=== PATIENT | female | born 1955 | race Caucasian/White ===

== ENCOUNTER 2025-01-01 12:43 | Emergency (ER) | payer MEDICARE, SELFPAY ==
[2025-01-01 12:57] VITALS: BP 120/58; PULSE 80; RESP 17; TEMP 36.5; O2SAT 98; BMI 28.5
--- NOTE | 2025-01-01 13:02 | DI.RAD.S_ITS ---
PROCEDURE: XR HIP W PEL IF DONE LT 2V INDICATIONS: Fall, left leg pain TECHNIQUE: 2 views of the hip were acquired. COMPARISON: None. FINDINGS: Bones: No fractures or dislocations. No suspicious bony lesions. The visualized pelvic ring appears intact. Soft tissues: No suspicious soft tissue calcifications or masses. IMPRESSION: No acute bony abnormality. Approved by: Benny Sanchez M.D. on 01/01/2025 at 12:56
--- NOTE | 2025-01-01 13:02 | DI.RAD.S_ITS ---
PROCEDURE: XR ANKLE LT MIN 3V INDICATIONS: Fall, left leg pain TECHNIQUE: 3 views of the ankle were acquired. COMPARISON: [facility], CR, XR TIBIA FIBULA LT 2V, 01/01/2025, 13:09. FINDINGS: Bones: Subtle lucency through the distal fibular metaphysis is noted. No ankle mortise disruption. Normal bone mineralization. Soft tissues: No tibiotalar joint effusion. Achilles tendon appears normal. IMPRESSION: Probable distal fibular nondisplaced fracture. Ankle mortise is maintained Approved by: Benny Sanchez M.D. on 01/01/2025 at 13:00
--- NOTE | 2025-01-01 13:03 | DI.RAD.S_ITS ---
PROCEDURE: XR TIBIA FIBULA LT 2V INDICATIONS: Fall, left leg pain TECHNIQUE: 2 views of the tibia and fibula were acquired. COMPARISON: None. FINDINGS: Bones: Subtle distal fibular nondisplaced fracture with associated soft tissue swelling Soft tissues: No suspicious soft tissue calcifications or masses. IMPRESSION: Subtle distal fibular nondisplaced Approved by: Benny Sanchez M.D. on 01/01/2025 at 13:02
--- NOTE | 2025-01-01 16:55 | ED_ITS ---
HPI - Fall General Chief Complaint: Fall Stated Complaint: Fell down stairs and injured LT ankle Time Seen by Provider: 01/01/25 16:55 Source: patient, RN notes reviewed and old records reviewed Mode of arrival: Wheelchair Limitations: no limitations History of Present Illness HPI Narrative: 69-year-old female history of diabetes on insulin, history of breast cancer, hypothyroid, prior myocardial infarction with hypertension, dyslipidemia, no aspirin or thinners patient presents with complaint of fall down approximately 4 stairs. She states her dog bumped her and caused her to fall. She fell onto her left side. She denies hitting her head she denies any new neck or back pain. She notes pain little bit in the left particularly in the left ankle over the lateral malleolus. She notes bruising and swelling of the lateral malleolus and pain with weight-bearing. She denies any new chest pain or shortness of breath. No nausea or vomiting. Denies any diarrhea, constipation or urinary symptoms. No incontinence. States her fall was yesterday afternoon and has not had any improvement so came for evaluation. She notes she has had a prior cervical fusion, she has had prior surgery on her lower lumbar spine, hysterectomy. Denies any allergies to drugs. Former smoker. Patient notes she has been diagnosed with osteoporosis. Patient lives in [facility]. Related Data Previous Rx's ?Medication ?Instructions ?Recorded oxycodone 5 mg tablet 5 mg PO QID PRN pain #10 tab s 01/01/25 Allergies Allergy/AdvReac Type Severity Reaction Status Date / Time No Known Drug Allergies Allergy Verified 01/01/25 12:57 Review of Systems Review of Systems ROS Unobtainable: All systems reviewed & are unremarkable except as noted in HPI and below Patient History Social History Smoking Status: Former smoker Smoking Status: Former smoker Exam Narrative Exam Narrative: GEN: Patient appears in mild distress. HEAD: No evidence of trauma, no raccoon/Siegel sign. NECK: Nontender, painless range of motion, trachea midline Negative Nexus criteria, no min line tenderness, distracting injury, altered mental status, neuro deficit, recent EtOH. EYES: PERRLA, EOMI ENT: External inspection normal, trachea is midline, TM's are normal no hemotypanum, Nares are clear, no septal hematoma, no dental or oral injury, airway is normal and with normal occlusion, No bony tenderness RESP: Chest is nontender and has symmetric movement, no ecchymosis, breath sounds are normal no crackles, wheezes or rales CVS: Heart sounds are normal, no murmur noted, No JVD. ABG/GI: Nontender, soft, normal bowel sounds, no distention, no organomegaly, pelvic rock is negative NEURO: Oriented AOx3, neuro is grossly intact, sensation and motor is normal all 4 extremities moving, cranial nerves II through XII are intact, GCS is 15 PSYCH: Normal mood and affect SKIN: Intact, warm and dry, no crepitus and without decubitus BACK: No CVA tenderness, no vertebral tenderness, no step-off's, no crepitus EXT: Patient has tenderness over the left lateral malleolus, she has obvious ecchymosis and swelling extending over the dorsum of the foot, no bony tenderness of the toes, no metatarsal tenderness, no tenderness of the calcaneus. Patient is nontender over the knee, right thigh or hip. She has normal range of motion otherwise. She can dorsiflex plantar flex but has more discomfort with movement of the ankle. No other bony tenderness of bilateral arms or right lower extremity. Initial Vital Signs Initial Vital Signs: Vital Signs Temperature 97.7 F 01/01/25 12:57 Pulse Rate 80 01/01/25 12:57 Respiratory Rate 17 01/01/25 12:57 Blood Pressure 120/58 L 01/01/25 12:57 Pulse Oximetry 98 01/01/25 12:57 Oxygen Delivery Method Room Air 01/01/25 12:57 Course Orders Ordered: ED Orders 01/01/25 13:02 XR ankle LT min 3V Stat XR hip w pel LT 2V Stat 01/01/25 13:03 XR tibia fibula LT 2V Stat Discontinued Medications Hydrocodone Bitart/Acetaminophen (Hydrocodone/Acet 5/325 Prepack) 1 bottle MISC DIRECTED ONE Stop: 01/01/25 17:10 Last Admin: 01/01/25 17:15 Dose: 1 bottle Documented By: SB Vital Signs Vital signs: Vital Signs - 8 hr 01/01/25 12:57 01/01/25 17:26 Temperature 97.7 F Pulse Rate 80 70 Respiratory Rate 17 18 Blood Pressure 120/58 L 142/68 H Pulse Oximetry 98 100 Oxygen Delivery Method Room Air MDM - Fall MDM Narrative Medical decision making narrative: Left ankle shows probable distal fibular nondisplaced fracture ankle mortise maintained. Left hip x-ray no acute bony abnormality. Left tib-fib shows subtle distal fibular fracture nondisplaced. Patient placed in ortho boot. Crutches. Patient to follow up with the orthopedic surgery. Patient may toe-touch weightbear as tolerated. We will give short course of medication. Discharge Plan Departure Patient Disposition: Home Clinical Impression: Fracture of distal end of fibula Instructions: DI for Ankle Fracture Activity Restrictions/Additional Instructions: Follow up with Orthopedic surgery please call to set up an appointment. You may toe-touch weightbear. Continue to wear splint until clear audible by Orthopedic surgery. You can take acetaminophen up to a 1000 mg every 6 hours as needed for pain. If inadequate for pain you can take 1-2 tablets of oxycodone every 6 hours as needed. This medication can make you sleepy do not drive, perform hazardous activities or make any major decisions while taking it. This medication will make you constipated please take a stool softener once to twice daily until stools are soft and regular. Prescription sent to [facility] in [place]. Splint Care: Keep splint clean and dry. Elevated affected body part to decrease swelling. OK to use ice pack on the affected body part. Use for 15-20 minutes each time, for 5-6x per day. If you develop worsening pain, numbness, tingling, discoloration of the affected body part, loosen the splint by loosening the MYLES wrap, and either see your doctor for an urgent re-assessment, or return to the Emergency Department. Return to the Emergency Department for any new or worsening symptoms. Prescriptions: New oxycodone 5 mg tablet 5 mg PO QID PRN (Reason: pain) Qty: 10 0RF Referrals: Cameron Booth MD [Physician, Orthopedic Surgery] Stand Alone Forms: Patient Portal/API
[2025-01-01 17:26] VITALS: BP 142/68; PULSE 70; RESP 18; O2SAT 100
== END 2025-01-01 17:39 | disposition home or self-care (01) ==
PROVIDERS: Emergency Provider Emergency Medicine
DX: S82.402A Unspecified fracture of shaft of left fibula, initial encounter for closed fracture (principal); W10.9XXA Fall (on) (from) unspecified stairs and steps, initial encounter
CPT/HCPCS: 73502; 73590; 73610; 99282; 99283